=== PATIENT | female | born 1985 | race Caucasian/White ===

== ENCOUNTER 2021-02-06 10:20 | Emergency (ER) | payer OTHER ==
[~2021-02-06] VITALS: Ht 149.9 cm; Wt 74.8 kg
[~2021-02-06 10:20] MED LIST: Bactrim Ds Tab1 EACH PO; CEPH500 PO; HYDACE5 PO; IBUP600 PO; MEDR150I; PERM5TC TOP; RXTRAM50 PO; SULTRIDS PO; TRAM50 PO; Ultram50 MG PO
[2021-02-06] MEDS ORDERED: OMEP20ER PO (11:49)
[2021-02-06] MEDS ORDERED: Cetirizine HCl10 MG PO (11:49)
[2021-02-06] MEDS ORDERED: Ventolin/Prove6.7 GM INH (11:49)
[2021-02-06] MEDS ORDERED: FLUT.05NI (11:49)
[2021-02-06] MEDS ORDERED: Prednisone50 MG PO (11:57)
[2021-02-06] MEDS ORDERED: BENADRYL25 MG PO (11:57)
[2021-02-06] MEDS ORDERED: EPIPEN 2-P0.3 MG/0.1 IM (11:57)
== END 2021-02-06 12:10 | disposition home or self-care (01) ==
LOC: ER 10:20
DX: T78.1XXA Other adverse food reactions, not elsewhere classified, initial encounter (principal); Z79.899 Other long term (current) drug therapy
CPT/HCPCS: 99283